=== PATIENT | female | born 1995 | race Caucasian/White ===

== ENCOUNTER 2023-10-14 03:36 | Emergency (ER) | payer BC ==
[~2023-10-14] VITALS: Ht 162.6 cm; Wt 63.5 kg
[~2023-10-14 03:36] MED LIST: ALBU90OI INH; AMOCLA400 PO; CODACEE120 PO; CRUTCH4 USE; Cipro500 MG PO; DEXGUASY; Flomax0.4 MG PO; HYDACE5 PO; IBUP200; IBUP600 PO; KETO10 PO; ONDA4 PO; OSEL75CA PO; OXYACE5T PO; PROM25 PO; Percocet 5-3251 EACH PO; Peri-Colace Ta1 EACH PO; RXHYDACE PO; RXONDA4ODT MM; RXOXYACE PO; SULTRISS PO; Zofran8 MG PO; [UNRECOGNIZED DRUG - OTHER]
[2023-10-14] MEDS ORDERED: Lactated Ringer's 1,000 ML IV ONE ×2 (03:40→04:25)
[2023-10-14] MEDS ORDERED: Ondansetron HCl 2 MG / ML 2ML Vial IV ONE (03:45)
[2023-10-14] MEDS ORDERED: Lidocaine 2% Viscous Soln 15 ML UDC PO ONE (03:45)
[2023-10-14] MEDS ORDERED: Mag Hydrox/AL Hydrox/Simeth 30 ML UDC PO ONE (03:45)
[2023-10-14] MEDS ORDERED: Atropine/Scopalam/Hyoscam/PB 5 ML UDC PO ONE (03:45)
[2023-10-14] MEDS ORDERED: Betamethasone Sod Phos/Acetate 6 MG/ML 5ML VIAL IM ONE (03:55)
[2023-10-14] MEDS ORDERED: Triamcinolone Inj Susp 40 MG / ML 1ML Vial IM ONE (03:55)
[2023-10-14] MEDS ORDERED: Metoclopramide HCl 5MG / ML 2ML Vial IV ONE (04:00)
[2023-10-14 04:01] LABS: BASOPHILS ABSOLUTE AUTO 0.03 K/mm3 (0.00-0.23); BASOPHILS PERCENT AUTO 0 % (0-2); EOSINOPHILS ABSOLUTE AUTO 0.06 K/mm3 (0.00-0.68); EOSINOPHILS PERCENT AUTO 1 % (0-6); Hematocrit 41.8 % (33.0-51.0); Hemoglobin 14.3 g/dL (11.5-16.0); IMMATURE GRAN ABSOLUTE AUTO 0.03 K/mm3 (0.00-0.10); IMMATURE GRAN PERCENT AUTO 0 % (0-1); LYMPHOCYTES ABSOLUTE AUTO 0.72 K/mm3 (0.84-5.20); LYMPHOCYTES PERCENT AUTO 6 % (21-46); MONOCYTES PERCENT AUTO 10 % (4-13); Mean Corpuscular HGB 32.4 pg (26.0-34.0); Mean Corpuscular HGB Conc 34.2 g/dL (31.5-36.5); Mean Corpuscular Volume 95 fL (80-100); Mean Platelet Volume 8.6 fL (9.1-12.4); NEUTROPHILS ABSOLUTE AUTO 10.18 K/mm3 (1.96-9.15); NEUTROPHILS PERCENT AUTO 83 % (41-73); Platelet Count 295 K/mm3 (150-400); RDW Coefficient Variation 11.3 % (11.7-14.2); RDW Standard Deviation 38.8 fL (35.1-46.3); Red Blood Cell Count 4.42 M/mm3 (3.80-5.20); White Blood Cell Count 12.22 K/mm3 (4.00-11.30)
[2023-10-14 04:25] LABS: Albumin, Blood 4.5 g/dL (3.4-5.0); Albumin/Globulin Ratio 1.2 (0.8-1.8); Bilirubin, Total 0.7 mg/dL (0.1-1.0); Bun/Creatinine Ratio 20.7 (12.0-20.0); Calcium, Blood 8.8 mg/dL (8.5-10.1); Creatinine, Blood 0.72 mg/dL (0.40-1.00); Globulin, Blood 3.6 g/dL (2.2-4.0); Potassium, Blood 3.6 mmol/L (3.5-5.5); Total Protein, Blood 8.1 g/dL (6.4-8.2)
[2023-10-14] MEDS ORDERED: METO10 PO (04:40)
[2023-10-14] MEDS ORDERED: ONDA4ODT MM (04:40)
[2023-10-14] MEDS ORDERED: RX Prepack 2 Tabs Ondansetron ODT 4MG UD ONE (04:55)
[2023-10-14 05:13] VITALS: BP 103/85
== END 2023-10-14 05:12 | disposition home or self-care (01) ==
LOC: ER 03:36
PROVIDERS: Physician Assistant
DX: A08.4 Viral intestinal infection, unspecified (principal)
CPT/HCPCS: 80053; 83690; 85025; 96361; 96372-59; 96374; 96375; 99284-25; A9270; J0702; J2405; J2765; J3301; J7120